=== PATIENT | male | born 1990 | race Caucasian/White ===

== ENCOUNTER 2021-02-22 10:04 | Emergency (ER) | payer OTHER ==
[~2021-02-22] VITALS: Ht 180.3 cm; Wt 59.1 kg
[2021-02-22] MEDS ORDERED: ACET250T27 PO (10:35)
[2021-02-22] MEDS ORDERED: LEVE500T53 PO ×2 (10:35→11:01)
[2021-02-22] MEDS ORDERED: DIVA-85 PO (10:35)
[2021-02-22] MEDS ORDERED: LAMO100 PO (10:35)
[2021-02-22] MEDS ORDERED: DIVA-112 PO (11:01)
[2021-02-22 11:34] VITALS: BP 122/60
== END 2021-02-22 11:35 | disposition home or self-care (01) ==
LOC: EMS 10:28
DX: G40.909 Epilepsy, unspecified, not intractable, without status epilepticus (principal); Z76.0 Encounter for issue of repeat prescription
CPT/HCPCS: 99283